=== PATIENT | female | born 1990 | race Caucasian/White ===

== ENCOUNTER 2024-06-23 13:52 | Outpatient (CLI) | payer OTHER, SELFPAY ==
--- NOTE | ~2024-06-23 | US_ITS ---
EXAMINATION: US OB <=14 wk fetus w TV DATE: 06/23/2024 14:49 INDICATION: Establish dating of during first trimester TECHNIQUE: Real-time pelvic ultrasound utilizing both a transvaginal and transabdominal probe was pe rformed. The interpreting radiologist was not present for the study. COMPARISON: None. FINDINGS: The uterus measures 9.1 x 4.5 x 2.4 cm. There is an intrauterine gestational sac. A yolk sac is iden tified but no discernible pole likely due to early stage of . The mean sac diameter me asures 10 mm, which correlates with an estimated gestational age of 5 weeks and 5 days. The right ovary measures 3.0 x 2.7 x 2.1 cm. The left ovary measures 2.2 x 2.0 2.0 cm. Vascular flow identified in both ovaries on color Doppler. There is no free fluid in the pelvis. IMPRESSION: 1. Single intrauterine gestational sac with yolk sac but no discernible pole likely due to michelle y stage of . 2. Gestational age by ultrasound of 5 weeks 5 day(s) +/- 4 day(s) with ultrasound estimated date of delivery (DAYANA) of 02/18/2025. Reviewed, dictated and finalized at location A. INFO CONSULTANT IMPRESSION: 1. Single intrauterine gestational sac with yolk sac but no discernible p ole likely due to early stage of . 2. Gestational age by ultrasound of 5 weeks 5 day(s) +/- 4 day(s) with ultraso und estimated date of delivery (DAYANA) of 02/18/2025.
== END 2024-06-23 13:53 | disposition home or self-care (01) ==
PROVIDERS: PCP Obstetrics & Gynecology Gynecology; Visit Provider Obstetrics & Gynecology Gynecology
DX: O36.80X0 Pregnancy with inconclusive fetal viability, not applicable or unspecified (principal); Z3A.00 Weeks of gestation of pregnancy not specified
CPT/HCPCS: 76801; 76817

== ENCOUNTER 2024-07-23 23:42 | Emergency (ER) | payer OTHER, SELFPAY ==
[2024-07-23 23:43] VITALS: BP 110/67; PULSE 70; RESP 17; TEMP 36.7; O2SAT 99
[2024-07-24 00:28] LABS: Basophils Absolute Auto 0.1 K/mm3 (0.0-0.1); Basophils Percent Auto 0.5 % (0.2-1.2); Eosinophils Absolute Auto 0.9 K/mm3 (0-0.3); Eosinophils Percent Auto 6.6 % (0-4.4); Hematocrit 35.2 % (37.0-47.0); Hemoglobin 11.8 g/dL (12.0-15.0); Immature Granulocyte Absolute 0.04 K/mm3 (0.00-0.031); Immature Granulocyte Percent A 0.3 % (0-0.5); Lymphocytes Percent Auto 23.6 % (18.3-44.2); Mean Corpuscular HGB Conc 33.5 g/dl (32-36); Mean Corpuscular Hemoglobin 28.6 pg (26-34); Mean Corpuscular Volume 85.4 fl (80-100); Mean Platelet Volume 10.1 fl (7.4-10.4); Monocytes Absolute Auto 1.2 K/mm3 (0.1-0.6); Monocytes Percent Auto 8.8 % (2.6-8.5); Neutrophils Absolute Auto 8.2 K/mm3 (1.3-6.7); Neutrophils Percent Auto 60.2 % (45.5-73.1); Platelet Count Result 269 k/mm3 (150-375); Red Blood Count 4.12 M/mm3 (4.2-5.4); Red Cell Distribution Width 13.7 % (11.5-14.5); White Blood Count 13.6 K/mm3 (4.5-10.0)
--- NOTE | 2024-07-24 00:30 | ED_ITS ---
HPI - Female Genitourinary General Chief complaint: Vaginal Bleeding Stated complaint: 7.5 weeks preg, cramping, passing blood Time Seen by Provider: 07/23/24 23:53 History of Present Illness HPI Narrative: Patient is a 33-year-old female who presents emergency department this evening complaining of lower abdominal cramping and vaginal bleeding. Patient is approximately 7.5 weeks and has a known subchorionic hematoma. Patient has had 2 ultrasounds performed during this 1 the end of June and when the beginning of July approximately 10 days ago confirming an intrauterine . The 2nd ultrasound revealed a subchorionic hemorrhage. Patient states the bleeding started with spotting on Wednesday and has since then increased in frequency and volume. Patient states that this evening she started to have some severe cramping and then started to pass some clots. Patient states that every time she passed a clot the cramping improves. Denies any additional symptoms or concerns at this time. Patient is . Related Data Home Medications ?Medication ?Instructions ?Recorded ?Confirmed ?Last Taken ?Type doxylamine succinate 25 mg tablet 25 mg PO QHS PRN 07/11/24 07/11/24 Unknown History (Unisom (doxylamine)) vits no.126-ferrous fum tablet PO 07/11/24 07/11/24 Unknown History 28 mg iron-folic acid 800 mcg tablet (Classic ) pyridoxine (vitamin B6) 25 mg 25 mg PO DAILY 07/11/24 07/11/24 Unknown History tablet Allergies Allergy/AdvReac Type Severity Reaction Status Date / Time Penicillins Allergy Mild Hives Verified 07/23/24 23:43 Cephalosporins Allergy Unknown RASH Verified 07/23/24 23:43 Review of Systems 2 Review of Systems: All systems are reviewed and are negative unless stated otherwise in the HPI. [facility] Past Medical History Medical History Anxiety Social History Social History Smoking status: Former smoker Alcohol intake: never Substance use: current Substance use type: marijuana Last use: not while Do You Feel Safe in your Home?: Yes Lack of Transportation: No Lack of Food: Never True Current Housing: I Have Housing Concerned About Future Housing: No Difficulty Paying Gas/Electric Bills: No Difficulty Paying for Meds: No Currently Unemployed: No Education: Bachelor's Degree Difficulty w/ Childcare or Family Care: No Living arrangements: with family Occupation/Education: occupation Gender identity (if verbalized by the patient): Female Sexual Orientation (if Verbalized by the Patient): Straight or Heterosexual Exam 2 Narrative: General: Alert, awake, afebrile, in no acute distress. HEENT: PERRL, no rhinorrhea, no post nasal drip, oropharynx clear. Neck: Trachea midline, no JVD, no lymphadenopathy. Cardiovascular: Regular rate and rhythm, no murmurs, rubs or gallops, no peripheral edema. Respiratory: Clear to auscultation bilaterally, no tachypnea, no wheezing, no rhonchi, no rubs, no respiratory distress. Abdomen: Soft, nontender, nondistended, no rebound, no guarding, no peritoneal signs. Pelvic: Exam performed with the presence of female nurse textile dyer revealing normal external genitalia, bleeding with blood clots noted in the vaginal canal, normal expected amount of bleeding, no active hemorrhage. Musculoskeletal: No joint swelling or deformity, normal muscle tone. Skin: No rashes or petechia, no signs of infection. Psychiatric: Alert and oriented, normal behavior and judgment for situation. Neurological: Alert and oriented to person, place, and time. Follows all commands. No focal deficits, speech is clear and fluent. Course Vital Signs Vital signs: Vital Signs Temperature 98.0 F 07/23/24 23:43 Pulse Rate 70 07/23/24 23:43 Respiratory Rate 17 07/23/24 23:43 Blood Pressure 110/67 07/23/24 23:43 Pulse Oximetry 99 07/23/24 23:43 Oxygen Delivery Room Air 07/23/24 23:43 Temperature 98.0 F 07/23/24 23:43 Pulse Rate 70 07/23/24 23:43 Respiratory Rate 17 07/23/24 23:43 Blood Pressure 110/67 07/23/24 23:43 Pulse Oximetry 99 07/23/24 23:43 Oxygen Delivery Room Air 07/23/24 23:43 MDM - Female Genitourinary MDM Narrative Medical decision making narrative: The patient was evaluated by myself in the emergency department. History is obtained from patient who is an independent historian and physical exam was performed. External medical records were reviewed at this time. IV was established and pertinent tests were ordered. Laboratory results obtained revealing no acute process. Stable hemoglobin 11.8, beta-hCG noted to be 10,436 which is trending downward from a beta hCG obtained on June 27, 2024 which was noted to be 26,376. Patients blood type noted to be A negative and at this time she was administered a dose of RhoGAM. Case was discussed with on-call OBGYN Dr. Plaza at 0200 who recommended pelvic rest and calling the office in the morning to schedule an ultrasound for further evaluation. Patient was informed of these findings at bedside and is agreeable with this plan. Differential diagnosis considerations include normal first-trimester bleeding, threatened miscarriage. Comorbidities impacting this visit include none. I have evaluated and discussed social determinants of health with the patient that could potentially impact subsequent diagnosis and treatment plans. On repeat assessment of the patient, reevaluation revealed that the patient is doing well and is in no acute distress. Patient symptoms have improved since she arrived to our emergency department. Repeat vital signs were all reviewed and noted to be stable. Differential diagnosis and treatment plan were discussed with the patient at bedside. Patient agrees with discussion and after shared medical decision making agrees with discharge. All questions were answered to the patient's satisfaction. Patient will follow up with her OBGYN in 2 days. Patient was provided with strict return precautions and instructed to return to the emergency department if any new or worsening symptoms develop. The patient was discharged in stable condition. Lab Data 07/24/24 00:17 07/24/24 00:17 Labs: Lab Results 07/24/24 07/24/24 07/24/24 Range/Units 00:17 01:02 01:06 WBC 13.6 H (4.5-10.0) K/mm3 RBC 4.12 L (4.2-5.4) M/mm3 Hgb 11.8 L (12.0-15.0) g/dL Hct 35.2 L (37.0-47.0) % MCV 85.4 (80-100) fl MCH 28.6 (26-34) pg MCHC 33.5 (32-36) g/dl RDW 13.7 (11.5-14.5) % Plt Count 269 (150-375) k/mm3 MPV 10.1 (7.4-10.4) fl Immature Gran % (Auto) 0.3 (0-0.5) % Neut % (Auto) 60.2 (45.5-73.1) % Lymph % (Auto) 23.6 (18.3-44.2) % Shannon % (Auto) 8.8 H (2.6-8.5) % Eos % (Auto) 6.6 H (0-4.4) % Baso % (Auto) 0.5 (0.2-1.2) % Lymph # (Auto) 3.20 (0.9-3.2) K/mm3 Shannon # (Auto) 1.2 H (0.1-0.6) K/mm3 Eos # (Auto) 0.9 H (0-0.3) K/mm3 Baso # (Auto) 0.1 (0.0-0.1) K/mm3 Abs Immat Gran (auto) 0.04 H (0.00-0.031) K/mm3 Absolute Neuts (auto) 8.2 H (1.3-6.7) K/mm3 Absolute Nucleated RBC 0.000 (0.0-0.012) K/mm3 Nucleated RBC % 0.0 (0.0-0.2) % PT 13.1 (11.1-14.7) Seconds INR 1.0 APTT 29.5 (22.3-36.8) Seconds Sodium 136 L (137-145) mmol/L Potassium 3.5 (3.4-5.0) mmol/L Chloride 101 (98-107) mmol/L Carbon Dioxide 23 (22-30) mmol/L Anion Gap 12 (4-12) mmol/L BUN 16 (7-17) mg/dL Creatinine 0.43 L (0.7-1.0) mg/dL Estim Creat Clear Calc 128 ml/min Estimated GFR > 60 (59 - ) Glucose 98 (65-110) mg/dL Calcium 8.9 (8.4-10.2) mg/dL Magnesium 2.0 (1.6-2.3) mg/dL Total Bilirubin 0.3 (0.2-1.3) mg/dL AST 26 (14-36) U/L ALT 20 (6-35) U/L Alkaline Phosphatase 48 (38-126) U/L Total Protein 7.0 (6.3-8.2) g/dL Albumin 4.4 (3.5-5.1) g/dL Beta HCG, Quant 77447.00 mIU/ML Urine Color Yellow (Yellow) Urine Appearance Cloudy H (Clear) Urine pH 5.0 (5.0-9.0) Ur Specific [place] 1.024 (1.001-1.035) Urine Protein 1+ H (Negative) mg/dL Urine Glucose (UA) Negative (Negative) mg/dL Urine Ketones Negative (Negative) mg/dL Ur Blood (Man) 3+ H (Negative) Urine Nitrate Negative (Negative) Urine Bilirubin Negative (Negative) Urine Urobilinogen 0.2 (<2.0) mg/dL Leukocyte Esterase Rfl Trace H (Negative) KEVIN/UL Urine RBC >100 H (0-2) /hpf Urine WBC 0-5 (0-3) /hpf Ur Squamous Epith Cells None seen (Few) /hpf Urine Bacteria None seen /hpf Urine Casts 0-2 POC Urine HCG, Qual Positive (Negative) Blood Type A Negative Antibody Screen Negative Screen TNP Baby's Blood Type TNP Baby's YE Not Reportable Doses of RhIg Required 1 Discharge Plan Discharge Clinical Impression: Threatened miscarriage Patient Disposition: Home, Self-Care Condition: Stable Instructions: Antibiotic Form, Threatened Miscarriage (ED) Additional Instructions: Please follow-up with your OBGYN as instructed within the next 48 hours. Return to ED if any new or worsening symptoms develop. Your blood type today was noted to be A negative and you administered a dose of RhoGAM. Patient Language: Ukrainian Prescriptions: No Action Classic 28 mg iron- 800 mcg tablet PO pyridoxine (vitamin B6) 25 mg tablet 25 mg PO DAILY Unisom (doxylamine) 25 mg tablet 25 mg PO QHS PRN Follow-up/Referrals: Christiano Malone MD [Primary Care Provider] - 2 Days Time of Disposition: 02:05
[2024-07-24 00:37] LABS: Prothrombin Time 13.1 Seconds (11.1-14.7)
[2024-07-24 00:38] LABS: Partial Thromboplastin Time 29.5 Seconds (22.3-36.8)
[2024-07-24 00:40] LABS: Alanine Aminotransferase 20 U/L (6-35); Albumin Level 4.4 g/dL (3.5-5.1); Alkaline Phosphatase 48 U/L (38-126); Anion Gap 12 mmol/L (4-12); Aspartate Amino Transferase 26 U/L (14-36); Bilirubin,Total 0.3 mg/dL (0.2-1.3); Blood Urea Nitrogen 16 mg/dL (7-17); Calcium 8.9 mg/dL (8.4-10.2); Carbon Dioxide 23 mmol/L (22-30); Chloride 101 mmol/L (98-107); Estimated CRCL calculation 128 ml/min; Estimated Glomerular Filt Rate > 60; Glucose 98 mg/dL (65-110); Potassium 3.5 mmol/L (3.4-5.0); Sodium 136 mmol/L (137-145)
[2024-07-24 01:09] LABS: BEDSIDEPREGUCG Positive (Negative)
[2024-07-24 01:27] LABS: Add Urine Microscopic? YES; Appearance Urine Cloudy (Clear); Bacteria Urine None Seen /hpf; Bilirubin Urine Negative (Negative); Blood Urine 3+ (Negative); Color Urine Yellow (Yellow); Glucose Urine UA Negative (Negative); Ketones Urine Negative (Negative); Leukocyte Esterase Ur Trace LEU/UL (Negative); Nitrate Urine Negative (Negative); Non Pathogenic Casts 0-2; Protein Urine 1+ mg/dL (Negative); RBC Urine >100 /hpf (0-2); Specific Grav Ur 1.024 (1.001-1.035); Squamous Epithelial Cell Urine None Seen /hpf (Few); Urobilinogen Urine 0.2 mg/dL (<2.0); WBC Urine 0-5 /hpf (0-3)
[2024-07-24] MEDS: RHO(D) IMMUNE GLOBULIN 300 MCG/2 ML SYRINGE IM (02:42)
--- OUTSIDE RECORDS SUMMARY | 2024-07-27 11:05 | XMS_ITS | Clinical Summary ---
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 Gender Identity Not on file Sexual Orientation Not on file Plan of Treatment Health Maintenance Due Date Last Done Comments Hepatitis C Virus (HCV) Screening 1991 TdaP Immunization 1991 Hepatitis B Immunization (1 of 3 - 19+ 3-dose series) 11/29/2010 Pap Smear 11/29/2012 Cervical Cancer Screening (CCS) 11/29/2021 HPV/Cotest 11/29/2021 Influenza Immunization (#1) 2024 SARS-COV-2 Immunization ( season) 2024 Respiratory Syncytial Virus (RSV) Immunization (Adult) (1 - 1-dose 75+ series) 11/29/2066 Meningococcal Immunization (ACWY) Aged Out No longer eligible based on patient's age to complete this topic Pneumococcal Immunization Combined Aged Out No longer eligible based on patient's age to complete this topic Rotavirus Immunization Aged Out No lo nger eligible based on patient's age to complete this topic
--- OUTSIDE RECORDS SUMMARY | 2024-07-27 11:05 | XMS_ITS | Clinical Summary ---
Author Organization [place] [facility] Address [address] [place] [address]. [place], [place] [id number] [place] [id number] Care Team Providers Care Deep Sea Diver Name Role Phone None, Provider MD Primary Care Provider Unavaila ble Allergies Active Allergy Reactions Criticality Noted Date Comments Cephalosporins Hives 03/28/2019 Penicillins Other (see comment) 01/30/2008 Medications fluticasone propionate (FLONASE) 50 MCG/ACT nasal spray 1 spray by Nasal route daily. Start with twice daily x 4 days 16 mL 03/28/2019 Active Social History Tobacco Use Types Packs/Day Years Used Date Smoking Tobacco: Never Smokeless Tobacco: Never Alcohol Use Standard Drinks/Week Comments No 0 (1 standard drink = 0.6 oz pur e alcohol) AUDIT-C Answer Date Recorded Frequency of Alcohol Consumption Never 03/28/2019 Average Number of Drinks Not on file 019 Frequency of Binge Drinking Not on file 03/06 Comments No Sex and Gender Information Value Date Recorded Sex Assigned at Not on file Legal Sex Female 5:56 PM CDT Gender Identity Not on file Sexual Orientation Not on file Last Filed Vital Signs Vital Sign Reading Time Taken Comments Blood Pressure 115/72 03/28/2019 5:53 PM CDT Pulse 85 03/28/2019 5:53 PM CDT Temperature 37.1 ??C (98.7 ??F) 03/28/2019 5:53 PM CD T Respiratory Rate 20 03/28/2019 5:53 PM CDT Oxygen Saturation 99% 03/28/2019 5:53 PM CDT Inhaled Oxygen Concentration - - Weight 49 kg (108 lb) 03/28/2019 5:53 PM CDT Height 167.6 cm (5' 6 ) 03/28/2019 5:53 PM CDT Body Mass Index 17.43 03/28/2019 5:53 PM CDT Plan of Treatment Health Maintenance Due Date Last Done Comments Cervical Cancer Screening Pa p Smear (Age 30 to 64) Every 3 Years 1991 Annual Physical 11/29/1994 Hepatitis C 11/29/2009 DTaP, Tdap and Td Vaccines ( 1 - Tdap) 11/29/2010 Hepatitis B Vaccines (1 of 3 - 19+ 3-dose series) 11/29/2010 Cervical Cancer Screening Pa p with HPV Testing (Age 30 to 64) Every 5 Years 11/29/2021 Cervical Cancer Screening with HPV 11/29/2021 COVID-19 Vaccine ( - 2023-2 5 season) 2024 Influenza Adult (#1) 2024 HPV Vaccines Aged Out No longer eligi ble based on patient's age to complete this topic Meningococcal Vaccine Aged Out No martina juan eligible based on patient's age to complete this topic Pneumococcal Vaccine: Pediat rics (0 to 5 Years) and At-Risk Patients (6 to 64 Years) Aged Out No longer eligible b ased on patient's age to complete this topic RSV Immunizations Under 20 Months Aged Out No longer eligible based on patient's age to complete this topic Insurance Care Teams Deep Sea Diver Relationship Specialty Start Date End Date None, Provider, PCP - General 03/28/19
== END 2024-07-24 02:49 | disposition home or self-care (01) ==
PROVIDERS: Emergency Provider Emergency Medicine; PCP Student in an Organized Health Care Education/Training Program
DX: O20.0 Threatened abortion (principal); Z3A.01 Less than 8 weeks gestation of pregnancy; Z87.891 Personal history of nicotine dependence
CPT/HCPCS: 36415; 80053; 81001; 81025; 83735; 84702; 85025; 85461; 85610; 85730; 86850; 86900; 86901; 90384; 96372; 99284; J2790

== ENCOUNTER 2024-07-26 07:52 | Outpatient (CLI) | payer OTHER, SELFPAY ==
--- NOTE | ~2024-07-26 | US_ITS ---
EXAMINATION: US OB <=14 wk fetus w TV DATE: 07/26/2024 09:36 INDICATION: Threatened . TECHNIQUE: Real-time transabdominal and transvaginal pelvic ultrasound was performed. COMPARISON: Ultrasound 07/14/2024 FINDINGS: TRANSABDOMINAL ULTRASOUND: The uterus measures 8.5 x 5.2 x 5.5 cm. TRANSVAGINAL ULTRASOUND: The intrauterine gestational sac is no longer present. The endometrial compl ex measures 14 mm in thickness. The ovaries are not visualized. There is no free fluid in the pelvis. IMPRESSION: 1. Spontaneous . Thickening of the endometrial complex is suspicious for retained products o f conception. Reviewed, dictated and finalized at location B. ISH LANGUAGE LECTURER IMPRESSION: 1. Spontaneous . Thickening of the endometrial complex is suspicious f or retained products of conception.
== END 2024-07-26 07:53 | disposition home or self-care (01) ==
PROVIDERS: PCP Student in an Organized Health Care Education/Training Program; Visit Provider Student in an Organized Health Care Education/Training Program
DX: O20.0 Threatened abortion (principal); Z3A.00 Weeks of gestation of pregnancy not specified
CPT/HCPCS: 76801; 76817

== ENCOUNTER 2024-10-17 13:16 | Outpatient (CLI) | payer OTHER, SELFPAY ==
--- OUTSIDE RECORDS SUMMARY | 2024-10-17 14:14 | XMS_ITS | Clinical Summary ---
Author Organization [facility] Address [address] [place] [address] Care Team Providers Care Shirt Bander Name Role Phone None, Provider MD Primary [...] 85 03/28/2019 5:53 PM CDT Temperature 37.1 C (98.7 F) 03/28/2019 5:53 PM CDT Respiratory Rate 20 03/28/2019 5:53 PM CDT [...] Vaccine ( - 2023-2 5 season) 2024 HPV Vaccines Aged Out No longer eligi ble based on patient's age to complete this topic Meningococcal B Vaccine Aged Out No l onger eligible based on patient's age to complete this topic Meningococcal Vaccine Aged Out No martina juan eligible based on patient's age to complete this topic Pneumococcal Vaccine: Pediat rics (0 to 5 Years) and At-Risk Patients (6 to 49 Years) Aged Out No longer eligible b ased on patient's age to complete this topic RSV Immunizations Under 20 Months Aged Out No longer eligible based on patient's age to complete this topic Insurance Care Teams Shirt Bander Relationship Specialty Start Date End Date None, Provider, PCP - General 03/28/19
== END 2024-10-17 13:17 | disposition home or self-care (01) ==
LOC: ANHLAB 13:20
PROVIDERS: Visit Provider Student in an Organized Health Care Education/Training Program
DX: O20.0 Threatened abortion (principal)
CPT/HCPCS: 36415; 84702

== ENCOUNTER 2024-10-19 12:13 | Outpatient (CLI) | payer OTHER, SELFPAY ==
--- OUTSIDE RECORDS SUMMARY | 2024-10-19 12:37 | XMS_ITS | Clinical Summary ---
Author Organization [facility] Address [address] [place] [id number] Care Team Providers Care Chief Privacy Officer Name Role Phone None, Provider MD Primary [...] to complete this topic Insurance Care Teams Chief Privacy Officer Relationship Specialty Start Date End Date None, Provider, PCP - General 03/28/19
--- OUTSIDE RECORDS SUMMARY | 2024-10-19 12:37 | XMS_ITS | Clinical Summary ---
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
== END 2024-10-19 12:14 | disposition home or self-care (01) ==
LOC: ANHLAB 12:13
PROVIDERS: Visit Provider Student in an Organized Health Care Education/Training Program
DX: O20.0 Threatened abortion (principal); Z3A.00 Weeks of gestation of pregnancy not specified
CPT/HCPCS: 36415; 84702

== ENCOUNTER 2024-10-20 16:07 | Emergency (ER) | payer OTHER, SELFPAY ==
--- NOTE | ~2024-10-20 | US_ITS ---
US OB <= 14 weeks fetus Ordering provider: Charu Kirk PA-C History: . bleeding, . Comparison: None. Technique: Transabdominal ultrasound of the pelvis (Doppler ultrasound interrogation techniques used as needed for this exam.) FINDINGS: CERVIX: Normal. UTERUS: Measures 8.3x 5.3x 6 cm in length which is within normal limits and is anteverted. No myomet rial masses. ENDOMETRIUM: Normal in thickness measuring 8 mm. (Note: the premenopausal endometrium may measure up to 16 mm when in the secretory phase.) No endometrial masses, cysts or fluid. CUL DE SAC: No free fluid. RIGHT OVARY: Normal in size measuring 2.2x 1.6x 2.6 cm. Normal echotexture. Doppler vascular flow pre sent. LEFT OVARY: Normal in size measuring 2.5x 1.3x 2.2 cm. Normal echotexture. Doppler vascular flow pres ent. ADNEXA: Normal. No mass. IMPRESSION: No intrauterine seen. Otherwise, normal pelvic ultrasound. Reviewed, dictated and finalized at location A.
--- OUTSIDE RECORDS SUMMARY | 2024-10-20 16:09 | XMS_ITS | Clinical Summary ---
Author Organization [facility] Address [address] [place] [id number] Care Team Providers Care Programmer Analyst Consultant Name Role Phone None, Provider MD Primary [...] to complete this topic Insurance Care Teams Programmer Analyst Consultant Relationship Specialty Start Date End Date None, Provider, PCP - General 03/28/19
--- OUTSIDE RECORDS SUMMARY | 2024-10-20 16:09 | XMS_ITS | Clinical Summary ---
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
[2024-10-20 16:53] VITALS: BP 105/60; PULSE 79; RESP 16; TEMP 37.2; O2SAT 99
[2024-10-20 18:29] LABS: Basophils Absolute Auto 0.1 K/mm3 (0.0-0.1); Basophils Percent Auto 0.8 % (0.2-1.2); Eosinophils Absolute Auto 0.7 K/mm3 (0-0.3); Eosinophils Percent Auto 7.2 % (0-4.4); Hematocrit 32.9 % (37.0-47.0); Hemoglobin 10.4 g/dL (12.0-15.0); Immature Granulocyte Absolute 0.02 K/mm3 (0.00-0.031); Immature Granulocyte Percent A 0.2 % (0-0.5); Lymphocytes Absolute Auto 2.23 K/mm3 (0.9-3.2); Lymphocytes Percent Auto 24.5 % (18.3-44.2); Mean Corpuscular HGB Conc 31.6 g/dl (32-36); Mean Corpuscular Hemoglobin 25.6 pg (26-34); Mean Corpuscular Volume 80.8 fl (80-100); Mean Platelet Volume 10.1 fl (7.4-10.4); Monocytes Absolute Auto 0.9 K/mm3 (0.1-0.6); Neutrophils Absolute Auto 5.2 K/mm3 (1.3-6.7); Neutrophils Percent Auto 57.3 % (45.5-73.1); Platelet Count Result 300 k/mm3 (150-375); Red Blood Count 4.07 M/mm3 (4.2-5.4); Red Cell Distribution Width 17.3 % (11.5-14.5); White Blood Count 9.1 K/mm3 (4.5-10.0)
[2024-10-20 18:38] LABS: Alanine Aminotransferase 19 U/L (6-35); Albumin Level 4.3 g/dL (3.5-5.1); Alkaline Phosphatase 43 U/L (38-126); Anion Gap 12 mmol/L (4-12); Aspartate Amino Transferase 23 U/L (14-36); Bilirubin,Total 0.2 mg/dL (0.2-1.3); Blood Urea Nitrogen 11 mg/dL (7-17); Calcium 8.9 mg/dL (8.4-10.2); Carbon Dioxide 24 mmol/L (22-30); Chloride 103 mmol/L (98-107); Estimated CRCL calculation 92 ml/min; Estimated Glomerular Filt Rate > 60; Glucose 120 mg/dL (65-110); Potassium 3.7 mmol/L (3.4-5.0); Sodium 139 mmol/L (137-145)
[2024-10-20 18:44] LABS: Partial Thromboplastin Time 27.9 Seconds (22.3-36.8); Prothrombin Time 13.5 Seconds (11.1-14.7)
--- NOTE | 2024-10-20 18:47 | ED_ITS ---
HPI - General Adult General Chief complaint: Unspecified Stated complaint: bleeding, Time Seen by Provider: 10/20/24 17:50 Source: patient Mode of arrival: ambulatory Limitations: no limitations History of Present Illness HPI narrative: This is a 33-year-old female that presents to the emergency department for bleeding in . Reports she is about 7 weeks by LMP. She started to have bleeding the last 2 days. She also reports some pelvic cramping. She has not ultrasound yet this . Her OB is Dr. Malone. Related Data Home Medications ?Medication ?Instructions ?Recorded ?Confirmed ?Last Taken ?Type vits no.126-ferrous fum tablet PO 07/11/24 10/11/24 Unknown History 28 mg iron-folic acid 800 mcg tablet (Classic ) Allergies Allergy/AdvReac Type Severity Reaction Status Date / Time Penicillins Allergy Mild Hives Verified 10/20/24 16:09 Cephalosporins Allergy Unknown RASH Verified 10/20/24 16:09 Review of Systems 2 Review of Systems: CONSTITUTIONAL: Denies fever GASTROINTESTINAL: Reports pelvic cramping All systems reviewed & are unremarkable except as noted in HPI and below PMFSH Past Medical History Medical History Anxiety Social History Social History Smoking status: Former smoker Alcohol intake: never Substance use: current Substance use type: marijuana Last use: not while Do You Feel Safe in your Home?: Yes Lack of Transportation: No Lack of Food: Never True Current Housing: I Have Housing Concerned About Future Housing: No Difficulty Paying Gas/Electric Bills: No Difficulty Paying for Meds: No Currently Unemployed: No Education: Bachelor's Degree Difficulty w/ Childcare or Family Care: No Living arrangements: with family Occupation/Education: occupation Gender identity (if verbalized by the patient): Female Sexual Orientation (if Verbalized by the Patient): Straight or Heterosexual Exam 2 Narrative: GENERAL: Well-appearing, well-nourished, and in no acute distress. HEAD: Normocephalic, atraumatic. EYES: EOMI. CHEST: Clear to auscultation. No respiratory distress. No wheezes rales or rhonchi HEART: Regular rate and rhythm. No murmur heard. Normal peripheral pulses. ABDOMEN: Soft, nontender, nondistended, normal active bowel sounds. EXTREMITIES: Normal range of motion. No edema. SKIN: Warm, dry, no rash. NEURO: No focal deficits. Alert and oriented x3. PSYCH: Normal mood and affect Course Course Emergency Course: Patient updated on her workup and agrees with plan of care Vital Signs Vital signs: Vital Signs Temperature 98.9 F 10/20/24 16:53 Pulse Rate 79 10/20/24 16:53 Respiratory Rate 16 10/20/24 16:53 Blood Pressure 105/60 10/20/24 16:53 Pulse Oximetry 99 10/20/24 16:53 Oxygen Delivery Room Air 10/20/24 16:53 Temperature 98.9 F 10/20/24 16:53 Pulse Rate 65 10/20/24 19:33 Respiratory Rate 18 10/20/24 19:33 Blood Pressure 109/69 10/20/24 19:33 Pulse Oximetry 99 10/20/24 19:33 Oxygen Delivery Room Air 10/20/24 16:53 Medical Decision Making MDM Narrative Medical decision making narrative: Patient presents to the emergency department for bleeding in early . Her vitals are stable. Hemoglobin also appears stable. Quantitative beta HCG is down trending. It is 2014 today. No intrauterine seen on ultrasound, no other abnormalities noted. Patient is A negative, given RhoGAM. She is to follow up with her OB for further care. She was given warnings to return to the ER Differential Diagnosis Differential Diagnosis: Miscarriage, threatened miscarriage Vital Signs Vital Signs: Vital Signs Temperature 98.9 F 10/20/24 16:53 Pulse Rate 79 10/20/24 16:53 Respiratory Rate 16 10/20/24 16:53 Blood Pressure 105/60 10/20/24 16:53 Pulse Oximetry 99 10/20/24 16:53 Oxygen Delivery Room Air 10/20/24 16:53 Temperature 98.9 F 10/20/24 16:53 Pulse Rate 65 10/20/24 19:33 Respiratory Rate 18 10/20/24 19:33 Blood Pressure 109/69 10/20/24 19:33 Pulse Oximetry 99 10/20/24 19:33 Oxygen Delivery Room Air 10/20/24 16:53 Lab Data Lab results reviewed: Yes I reviewed the patient's lab results. 10/20/24 18:23 04/18/25 18:23 Labs: Lab Results 10/20/24 10/20/24 Range/Units 18:23 18:34 WBC 9.1 (4.5-10.0) K/mm3 RBC 4.07 L (4.2-5.4) M/mm3 Hgb 10.4 L (12.0-15.0) g/dL Hct 32.9 L (37.0-47.0) % MCV 80.8 (80-100) fl MCH 25.6 L (26-34) pg MCHC 31.6 L (32-36) g/dl RDW 17.3 H (11.5-14.5) % Plt Count 300 (150-375) k/mm3 MPV 10.1 (7.4-10.4) fl Immature Gran % (Auto) 0.2 (0-0.5) % Neut % (Auto) 57.3 (45.5-73.1) % Lymph % (Auto) 24.5 (18.3-44.2) % Bates % (Auto) 10.0 H (2.6-8.5) % Eos % (Auto) 7.2 H (0-4.4) % Baso % (Auto) 0.8 (0.2-1.2) % Lymph # (Auto) 2.23 (0.9-3.2) K/mm3 Bates # (Auto) 0.9 H (0.1-0.6) K/mm3 Eos # (Auto) 0.7 H (0-0.3) K/mm3 Baso # (Auto) 0.1 (0.0-0.1) K/mm3 Abs Immat Gran (auto) 0.02 (0.00-0.031) K/mm3 Absolute Neuts (auto) 5.2 (1.3-6.7) K/mm3 Absolute Nucleated RBC 0.000 (0.0-0.012) K/mm3 Nucleated RBC % 0.0 (0.0-0.2) % PT 13.5 (11.1-14.7) Seconds INR 1.0 APTT 27.9 (22.3-36.8) Seconds Sodium 139 (137-145) mmol/L Potassium 3.7 (3.4-5.0) mmol/L Chloride 103 (98-107) mmol/L Carbon Dioxide 24 (22-30) mmol/L Anion Gap 12 (4-12) mmol/L BUN 11 D (7-17) mg/dL Creatinine 0.65 L (0.7-1.0) mg/dL Estim Creat Clear Calc 92 ml/min Estimated GFR > 60 (59 - ) Glucose 120 H (65-110) mg/dL Calcium 8.9 (8.4-10.2) mg/dL Total Bilirubin 0.2 (0.2-1.3) mg/dL AST 23 (14-36) U/L ALT 19 (6-35) U/L Alkaline Phosphatase 43 (38-126) U/L Total Protein 7.0 (6.3-8.2) g/dL Albumin 4.3 (3.5-5.1) g/dL Beta HCG, Quant 2014.10 mIU/ML Blood Type A Negative Antibody Screen Positive Antibody Identification Passive Due to RH Imm Glob Antigen Identification Cancelled YE, IgG Interpret Not Performed YE, Poly Interpret Neg YE, Complement Interp Not Performed Screen TNP Baby's Blood Type TNP Baby's YE Not Reportable Doses of RhIg Required 1 Imaging Data Radiologist's impression: ITS Impressions Ultrasound 10/20/24 20:01 IMPRESSION: No intrauterine seen. Otherwise, normal pelvic ultrasound. Critical Care Time Critical Care Time Critical Care Time: No Discharge Plan Discharge Clinical Impression: Miscarriage Patient Disposition: Home Condition: Stable Instructions: Miscarriage (ED) Additional Instructions: Return to the ER if you experience fever, chest pain, shortness of breath, abdominal pain with nausea and vomiting, you are unable to keep down liquids or solids, you are soaking through a pad/hour, or any other symptoms that are concerning to you Remain well hydrated. Tylenol or Ibuprofen as needed for pain Follow up with your OB Patient Language: Telugu Prescriptions: No Action Classic 28 mg iron- 800 mcg tablet PO progesterone micronized 200 mg capsule 200 mg vaginal QHS 30 Days Qty: 30 0RF Follow-up/Referrals: PHYSICIAN,HYDRAULIC OIL TOOL OPERATOR [Primary Care Provider] - Christiano Malone MD [Physician] -
[2024-10-20 18:53] VITALS: BP 94/57; PULSE 66; RESP 18; O2SAT 100
--- OUTSIDE RECORDS SUMMARY | 2024-10-20 19:09 | XMS_ITS | Clinical Summary ---
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
--- OUTSIDE RECORDS SUMMARY | 2024-10-20 19:09 | XMS_ITS | Clinical Summary ---
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
--- NOTE | 2024-10-20 19:23 | PC.NURSE ---
Assumed care of patient. Patient resting on stretcher in NAD. Pt reports still bleeding with large clots. Denies dizziness or pallor. Denies further needs at this time. Call light in reach with family at bedside.
[2024-10-20 19:33] VITALS: BP 109/69; PULSE 65; RESP 18; O2SAT 99
--- NOTE | 2024-10-20 20:01 | PC.NURSE ---
Rhogam still pending with blood bank due to pos antibody. Provider aware.
[2024-10-20] MEDS: RHO(D) IMMUNE GLOBULIN 300 MCG/2 ML SYRINGE IM (21:05)
[2024-10-20 21:24] VITALS: BP 111/63; PULSE 62; RESP 18; TEMP 37.2; O2SAT 100
== END 2024-10-20 21:26 | disposition home or self-care (01) ==
PROVIDERS: Emergency Provider Physician Assistant
DX: O03.9 Complete or unspecified spontaneous abortion without complication (principal); Z87.891 Personal history of nicotine dependence
CPT/HCPCS: 36415; 76801; 80053; 84702; 85025; 85461; 85610; 85730; 86850; 86880; 86900; 86901; 90384; 96372; 99284; J2790